=== PATIENT | female | born 1980 | race Caucasian/White ===

== ENCOUNTER 2022-08-05 12:02 | Emergency (ER) | payer OTHER, SELFPAY ==
[2022-08-05 12:14] VITALS: BP 127/73; PULSE 82; RESP 20; TEMP 36.8; O2SAT 100
--- NOTE | 2022-08-05 12:37 | ED.GENADULT ---
HPI - General Adult General Chief complaint: Upper Respiratory Infection Stated complaint: headache Time Seen by Provider: 08/05/22 12:23 Source: patient Mode of arrival: ambulatory Limitations: no limitations History of Present Illness HPI narrative: Patient presents today with a one-week history of headache with posterior neck and upper back pain. Associated symptoms include nausea with 1 episode of vomiting that started this morning as well as photophobia and a few episodes of dizziness. Denies fever, cough, congestion, rhinorrhea, sore throat, ear pain, vision changes. Patient currently rates her pain 6/10 and has been taking Aleve D, ibuprofen, Claritin, and Flonase without relief. No history of migraines or chronic headaches. Patient states that when the headache weeks or up in the middle of the night, the pain that she is experiencing is the worst headache she has ever had. Related Data Home Medications Medication Instructions Recorded Confirmed No Home Medications 08/05/22 08/05/22 Allergies Allergy/AdvReac Type Severity Reaction Status Date / Time No Known Allergies Allergy Verified 08/05/22 12:08 Review of Systems Review of Systems: CONSTITUTIONAL: Denies body aches, fever, or sweats.+ chills EYES: Denies visual changes, redness, or discharge.+ photophobia ENT: Denies rhinorrhea, congestion, sore throat, or otalgia. CARDIOVASCULAR: Denies chest pain, palpitations, or edema. RESPIRATORY: Denies cough or dyspnea. GASTROINTESTINAL: Denies abdominal pain, or diarrhea.+ nausea, vomiting GENITOURINARY: Denies dysuria or hematuria. SKIN: Denies rash, itching, or wounds. MUSCULOSKELETAL: Denies joint pain, or myalgia.+ neck and upper back pain and stiffness NEUROLOGIC: Denies numbness, tingling, or weakness.+ headache, dizziness PSYCH: Denies depression or anxiety. [facility] Family History Family History Father Family history of kidney disease Grandparent Family history of kidney disease Social History Social History Smoking status: Never smoker Second hand tobacco smoke exposure: No Alcohol intake: current Comments At time of signature, I have reviewed and agree with nursing past medical, surgical, social and family history unless otherwise noted. Please see nursing chart for further information. There is no relevant family history pertinent to the presenting complaint Exam Narrative: GENERAL: Well-appearing, well-nourished, and in no acute distress. HEAD: Normocephalic, atraumatic. EYES: EOMI. PERRL. No redness or drainage. Conjunctivae normal. ENT: Mucous membranes pink and moist. Nares clear. No rhinorrhea. TMs normal bilaterally. Throat normal. Uvula midline. NECK: Normal AROM. Supple. No lymphadenopathy. Almost full range of motion of the neck. Patient states her neck is stiff and is unable to fully complete flexion. Neck is nontender. CHEST: No respiratory distress. Clear to auscultation. HEART: Regular rate and rhythm. No murmur appreciated. Normal peripheral pulses. ABDOMEN: Soft, nontender, nondistended, normal active bowel sounds. EXTREMITIES: Normal range of motion. No edema. SKIN: Warm, dry, no rash. Capillary refill normal. Normal skin turgor. NEURO: No focal deficits. Alert and oriented x3. Gait steady. PSYCH: Normal affect. No signs of depression or anxiety. Course Course Level of Care: Express Care Visit Vital Signs Vital signs: Vital Signs Temperature 98.3 F 08/05/22 12:14 Pulse Rate 82 08/05/22 12:14 Respiratory Rate 20 08/05/22 12:14 Blood Pressure 127/73 08/05/22 12:14 Pulse Oximetry 100 08/05/22 12:14 Oxygen Delivery Room Air 08/05/22 12:14 Temperature 98.3 F 08/05/22 12:14 Pulse Rate 82 08/05/22 12:14 Respiratory Rate 20 08/05/22 12:14 Blood Pressure 127/73 08/05/22 12:14 Pulse Oximetry 100 03
== END 2022-08-05 12:53 | disposition left against medical advice (07) ==
PROVIDERS: Emergency Provider Nurse Practitioner; PCP Nurse Practitioner Family
DX: R51.9 Headache, unspecified (principal); R11.2 Nausea with vomiting, unspecified; Z20.822 Contact with and (suspected) exposure to COVID-19
CPT/HCPCS: 87426; 99213; C9803; G0463

== ENCOUNTER 2022-08-05 14:30 | Emergency (ER) | payer OTHER, SELFPAY ==
--- NOTE | ~2022-08-05 | CT_ITS ---
EXAMINATION: CT brain wo con DATE: 08/05/2022 17:35 INDICATION: Headache. TECHNIQUE: Computed tomography (CT) of the head was performed without intravenous contrast. The mA wa s adjusted according to patient size. Iterative reconstruction technique was employed. The dose-lengt h product was 605.33 mGy-cm. COMPARISON: None FINDINGS: There is no intracranial hemorrhage, acute infarction, or abnormal intracranial mass lesion . The ventricles are normal in size. The orbits are normal. There is mucosal thickening in the parana adarsh sinuses. There is wall thickening of right maxillary sinus, consistent with chronic sinusitis. Th e mastoid air cells are normal. IMPRESSION: 1. Normal brain. 2. Chronic sinusitis. Reviewed, dictated and finalized at location A. SUPPLEMENTAL
[2022-08-05 15:12] VITALS: BP 125/85; PULSE 101; RESP 16; TEMP 36.8; O2SAT 100
--- NOTE | 2022-08-05 17:17 | ED.HA ---
HPI - Headache General Chief Complaint: Headache Stated Complaint: headache, N/V Time Seen by Provider: 08/05/22 16:56 History of Present Illness HPI Narrative: Patient is a 42-year-old female who is previously healthy here for evaluation of a generalized headache. States the headache came on about 7 days ago, is diffuse across her entire head and is worse at nighttime. States it feels like a throbbing pulsatile sensation. She is attempted ibuprofen without relief but did take an Aleve today with good relief of her headache. States that this morning she had an episode of vomiting but denies any abdominal pain, diarrhea, fevers. Also reporting sinus congestion, rhinorrhea and sinus pressure. She went to an urgent care facility this morning she had a negative COVID and flu test and was told to come to the ED for further eval. Related Data Allergies Allergy/AdvReac Type Severity Reaction Status Date / Time No Known Allergies Allergy Verified 08/05/22 12:08 Review of Systems Review of Systems: Gen.: Denies fevers or chills Eyes: Denies eye pain or visual change ENT: Denies congestion Respiratory: Denies shortness of breath or cough CV: Denies chest pain or palpitations GI: Denies abdominal pain nausea, emesis or diarrhea denies burning, urgency, frequency or hematuria Musculoskeletal: Denies back pain or muscle pain Neuro: Reports headache. denies numbness, tingling, weakness or focal weakness Skin: Denies rash Except as documented, all other systems reviewed and negative [facility] Family History Family History Father Family history of kidney disease Grandparent Family history of kidney disease Social History Social History Smoking status: Never smoker Second hand tobacco smoke exposure: No Alcohol intake: current Exam Narrative: APPEARANCE: Well appearing, no pain in distress, well-nourished. Head: Normocephalic and atraumatic. EYES: PERRLA/EOMI, conjunctivae clear NOSE: frontal sinus tenderness. EARS: External ear normal in appearance THROAT: Oropharynx is clear. Mucous membranes are moist. NECK: No nuchal rigidity. Supple. No adenopathy, no masses. RESPIRATORY: Airway patent, respirations nonlabored. Clear to auscultation bilaterally, no rales, rhonchi, wheezing. CARDIOVASCULAR: Regular rate and rhythm without murmurs, rubs, or gallops. ABDOMINAL: Normoactive bowel sounds. Soft, nontender, nondistended. No rebound tenderness or guarding. MUSCULOSKELETAL: Extremities are warm and well-perfused. Moves all extremities well. No edema. NEURO: CN II-XII intact. Finger to nose normal. normal gait. Normal speech. No focal neurologic deficits. SKIN: Skin is warm and dry. No rashes. PSYCHIATRIC: Normal affect/mood. Course Vital Signs Vital signs: Vital Signs Temperature 98.3 F 08/05/22 15:12 Pulse Rate 101 H 08/05/22 15:12 Respiratory Rate 16 08/05/22 15:12 Blood Pressure 125/85 08/05/22 15:12 Pulse Oximetry 100 08/05/22 15:12 Temperature 98.3 F 08/05/22 15:12 Pulse Rate 101 H 08/05/22 15:12 Respiratory Rate 16 08/05/22 15:12 Blood Pressure 125/85 08/05/22 15:12 Pulse Oximetry 100 08/05/22 15:12 MDM - Headache MDM Narrative Medical decision making narrative: 42-year-old female here for evaluation of diffuse headache over the past week associated with some nasal congestion and sinus pressure. This patient presents with a headache most consistent with benign headache from either sinusitis, tension type headache vs migraine. No headache red flags. Neurologic exam without evidence of meningismus, AMS, focal neurologic findings so doubt meningitis, encephalitis, stroke. Presentation not consistent with acute intracranial bleed to include SAH (lack of risk factors, headache history). No history of trauma so doubt ICH. Given history and physical temporal brayan
[2022-08-05 17:52] LABS: Basophils Percent Auto 0.4 % (0.2-1.2); Eosinophils Absolute Auto 0.3 K/mm3 (0-0.3); Eosinophils Percent Auto 2.6 % (0-4.4); Hematocrit 40.2 % (37.0-47.0); Hemoglobin 13.2 g/dL (12.0-15.0); Immature Granulocyte Absolute 0.05 K/mm3 (0.00-0.031); Immature Granulocyte Percent A 0.5 % (0-0.5); Lymphocytes Absolute Auto 2.06 K/mm3 (0.9-3.2); Lymphocytes Percent Auto 20.9 % (18.3-44.2); Mean Corpuscular HGB Conc 32.8 g/dl (32-36); Mean Corpuscular Hemoglobin 29.1 pg (26-34); Mean Corpuscular Volume 88.5 fl (80-100); Mean Platelet Volume 8.9 fl (7.4-10.4); Monocytes Percent Auto 9.7 % (2.6-8.5); Neutrophils Absolute Auto 6.5 K/mm3 (1.3-6.7); Neutrophils Percent Auto 65.9 % (45.5-73.1); Platelet Count Result 349 k/mm3 (150-375); Red Blood Count 4.54 M/mm3 (4.2-5.4); Red Cell Distribution Width 12.4 % (11.5-14.5); White Blood Count 9.9 K/mm3 (4.5-10.0)
[2022-08-05 18:01] LABS: Lactic Acid Reflex 0.6 mmol/L (0.7-2.0)
[2022-08-05 18:02] LABS: Alanine Aminotransferase 14 U/L (6-35); Albumin Level 4.5 g/dL (3.5-5.1); Alkaline Phosphatase 57 U/L (38-126); Anion Gap 8 mmol/L (8-16); Aspartate Amino Transferase 18 U/L (14-36); Bilirubin,Total 0.9 mg/dL (0.2-1.3); Blood Urea Nitrogen 8 mg/dL (7-17); Carbon Dioxide 27 mmol/L (22-30); Chloride 101 mmol/L (98-107); Estimated CRCL calculation 132 ml/min; Estimated Glomerular Filt Rate > 60; Glucose 97 mg/dL (65-110); Potassium 3.7 mmol/L (3.4-5.0); Sodium 136 mmol/L (137-145)
[2022-08-05 18:55] LABS: Erythrocyte Sedimentation Rate 22 mm/hr (0-20)
[2022-08-05 18:59] VITALS: BP 130/83; PULSE 84; RESP 16; O2SAT 100
== END 2022-08-05 18:59 | disposition home or self-care (01) ==
PROVIDERS: Emergency Provider Physician Assistant; PCP Nurse Practitioner Family
DX: J32.9 Chronic sinusitis, unspecified (principal)
CPT/HCPCS: 36415; 70450; 80053; 83605; 85025; 85652; 99284

== ENCOUNTER 2022-10-03 17:29 | Emergency (ER) | payer OTHER, SELFPAY ==
--- NOTE | ~2022-10-03 | XR_ITS ---
EXAMINATION: XR ankle RT min 3V DATE: 10/03/2022 18:03 INDICATION: Distal right fibular pain and swelling after stepping off a large. TECHNIQUE: Anteroposterior, oblique, mortise, and lateral views of the right ankle were obtained. COMPARISON: None. FINDINGS: Bone alignment is normal. Suggestion of a possible minimally elevated flake like cortical avulsion fr acture along the lateral margin of the posterior calcaneus which could represent the footplate of the calcaneofibular ligament. No other lesions suspicious for fracture identified. Joint spaces are norm al. Small plantar calcaneal spur. Mild soft tissue swelling distal to the tip of the lateral malleolu s. IMPRESSION: 1. Possible minimally displaced small flake-like avulsion fracture fragment with location suggesting the calcaneal insertion of the calcaneofibular ligament. Reviewed, dictated and finalized at location A. IMPRESSION: 1. Possible minimally displaced small flake-like avulsion fracture fragment wit h location suggesting the calcaneal insertion of the calcaneofibular ligament.
[2022-10-03 17:44] VITALS: BP 116/72; PULSE 81; RESP 18; TEMP 36.4; O2SAT 100
--- NOTE | 2022-10-03 17:59 | ED.GENADULT ---
HPI - General Adult General Chief complaint: Extremity Injury, Lower Stated complaint: rt ankle injury Time Seen by Provider: 10/03/22 17:59 Source: patient Mode of arrival: ambulatory Limitations: no limitations History of Present Illness HPI narrative: 42-year-old female patient presents to the [facility] with complaints of right ankle pain. Patient states that she was at the park today stepped down from a ledge on to some slippery pine needles and states she rolled her ankle and heard a pop to the right ankle. Patient states that she fell due to the pain. Patient states she did not ice it or take anything for pain prior to arrival came straight here after the injury at the park. Related Data Home Medications Medication Instructions Recorded Confirmed No Home Medications 10/03/22 10/03/22 Allergies Allergy/AdvReac Type Severity Reaction Status Date / Time No Known Allergies Allergy Verified 10/03/22 17:54 Review of Systems Review of Systems: CONSTITUTIONAL: Denies fever, chills, or sweats. EYES: Denies visual changes, redness, or discharge. ENT: Denies rhinorrhea, congestion, sore throat, or otalgia. CARDIOVASCULAR: Denies chest pain, palpitations, or edema. RESPIRATORY: Denies cough or dyspnea. GASTROINTESTINAL: Denies abdominal pain, nausea, vomiting, or diarrhea. GENITOURINARY: Denies dysuria or hematuria. SKIN: Denies rash or itching. MUSCULOSKELETAL: Denies back pain, joint pain, or myalgia. Positive right ankle pain NEUROLOGIC: Denies headache, numbness, or weakness. PSYCHIATRIC: Denies anxiety or depression. [facility] Past Medical History Medical History Asthma Sinus tachycardia Family History Family History Father Family history of kidney disease Grandparent Family history of kidney disease Social History Social History Smoking status: Never smoker Second hand tobacco smoke exposure: No Alcohol intake: current Comments At the time of my signature I agree with nursing past medical history, surgical, social, and family history. There is no relevant family history pertinent to the presenting complaint. Exam Narrative: GENERAL: Well-appearing, well-nourished, and in no acute distress. HEAD: Normocephalic, atraumatic. EYES: PERRLA and EOMI. ENT: Nares clear, no rhinorrhea or epistaxis. Mucous membranes moist. NECK: Supple. No lymphadenopathy CHEST: Clear to auscultation. No respiratory distress. HEART: Regular rate and rhythm. No murmur heard. Normal peripheral pulses. ABDOMEN: Soft, nontender, nondistended, normal active bowel sounds. EXTREMITIES: Patient is unable to bear weight and ambulate without pain on the right ankle. The R ankle is without obvious asymmetry or deformity when compared to the L ankle. Patient can flex/extend, pain with invert/chandra. No ecchymosis, soft tissue swelling noted over the lateral side of the right ankle. No body tenderness to palpation over the medial or lateral malleolus. Anterior talofibular ligament, posterior talofibular ligament, calcaneofibular ligament nontender and without swelling. No tenderness or deformity of the midfoot or over the proximal fifth metatarsal. Good DP and posterior tibial pulses and sensation to light touch normal. Talar tilt test is negative for ligament laxity to valgus or vargus stress. Negative anterior draw. Peroneal nerve is intact with strong eversion and plantar flexion. SKIN: Warm, dry, no rash. NEURO: No focal deficits. Alert and oriented x3. Course Course Level of Care: Express Care Visit Reevaluation(s) Reevaluation #1: Re-evaluated patient notified her that her x-ray does shows avulsion fracture and possibly some issues with the calcaneus ligament. Discussed with patient we will put her in an OCL for comfort and pain have her follow up with
[2022-10-03] MEDS: IBUPROFEN 400 MG TABLET 800 MG PO (18:11)
--- NOTE | 2022-10-03 19:01 | ED.GENADULT ---
HPI - General Adult General Chief complaint: Extremity Injury, Lower Stated complaint: rt ankle injury Time Seen by Provider: 10/03/22 17:59 Source: patient Mode of arrival: ambulatory Limitations: no limitations Related Data Home Medications Medication Instructions Recorded Confirmed No Home Medications 10/03/22 10/03/22 Allergies Allergy/AdvReac Type Severity Reaction Status Date / Time No Known Allergies Allergy Verified 10/03/22 17:54 [facility] Past Medical History Medical History Asthma Sinus tachycardia Family History Family History Father Family history of kidney disease Grandparent Family history of kidney disease Social History Social History Smoking status: Never smoker Second hand tobacco smoke exposure: No Alcohol intake: current Course Vital Signs Vital signs: Vital Signs Temperature 36.4 C 10/03/22 17:44 Pulse Rate 81 10/03/22 17:44 Respiratory Rate 18 10/03/22 17:44 Blood Pressure 116/72 10/03/22 17:44 Pulse Oximetry 100 10/03/22 17:44 Oxygen Delivery Room Air 10/03/22 17:44 Temperature 36.4 C 10/03/22 17:44 Pulse Rate 81 10/03/22 17:44 Respiratory Rate 18 10/03/22 17:44 Blood Pressure 116/72 10/03/22 17:44 Pulse Oximetry 100 10/03/22 17:44 Oxygen Delivery Room Air 10/03/22 17:44 Medical Decision Making Vital Signs Vital Signs: Vital Signs Temperature 36.4 C 10/03/22 17:44 Pulse Rate 81 10/03/22 17:44 Respiratory Rate 18 10/03/22 17:44 Blood Pressure 116/72 10/03/22 17:44 Pulse Oximetry 100 10/03/22 17:44 Oxygen Delivery Room Air 10/03/22 17:44 Temperature 36.4 C 10/03/22 17:44 Pulse Rate 81 10/03/22 17:44 Respiratory Rate 18 10/03/22 17:44 Blood Pressure 116/72 10/03/22 17:44 Pulse Oximetry 100 10/03/22 17:44 Oxygen Delivery Room Air 10/03/22 17:44 Discharge Plan Discharge Clinical Impression: Avulsion fracture of right ankle Qualifiers: Encounter type: initial encounter Fracture type: closed Qualified Code(s): S82.891A - Other fracture of right lower leg, initial encounter for closed fracture Patient Disposition: Home, Self-Care Condition: Stable Instructions: Antibiotic Form, Ankle Fracture (ED) Additional Instructions: Avoid weight bearing until the pain subsides. Ice to the area 20-30 minutes 4-6 times a day Elevate above heart Elastic wrap or orthopedic splint as directed for comfort until follow-up with orthopedic surgeon Crutches as directed if needed Tylenol for lesser pain Ibuprofen regularly for the next 2-3 days for the inflammation Follow up with your primary care provider if the condition is not improving within 1 week or sooner if the Condition worsens with numbness, tingling, decrease sensation with weakness to seek ER. Prescriptions: No Action No Home Medications Follow-up/Referrals: Che,AMY Mcintosh-DONELL [Primary Care Provider] - Danial Ortiz MD [Physician] - Stand Alone Forms: Work/School Release IP Time of Disposition: 18:29
== END 2022-10-03 19:49 | disposition home or self-care (01) ==
PROVIDERS: Emergency Provider Nurse Practitioner Family; PCP Nurse Practitioner Family
DX: S82.891A Other fracture of right lower leg, initial encounter for closed fracture (principal); X50.9XXA Other and unspecified overexertion or strenuous movements or postures, initial encounter; J45.909 Unspecified asthma, uncomplicated
CPT/HCPCS: 29515; 73610; 99214; A9270; G0463